=== PATIENT | female | born 1985 | race Caucasian/White ===

== ENCOUNTER 2019-12-22 17:48 | Emergency (ER) | payer OTHER, SELFPAY ==
[2019-12-22 17:56] VITALS: BP 114/66; PULSE 79; RESP 16; TEMP 36.9; O2SAT 100
--- NOTE | 2019-12-22 18:27 | PC.NURSE ---
moved to rm 1.
--- NOTE | 2019-12-22 18:41 | PC.NURSE ---
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
--- NOTE | 2019-12-22 18:45 | ED.SKABFB ---
HPI - Skin/Abscess/Foreign Bdy General Chief complaint: Skin/Abscess/Foreign Body Stated complaint: Pain under arm Time Seen by Provider: 12/22/19 18:16 Source: patient and RN notes reviewed Mode of arrival: ambulatory Limitations: no limitations History of Present Illness HPI narrative: Patient presents today complaining of an abscess to the right posterior lower leg x2 days. History of MRSA sepsis with multisystem organ failure few years ago where she was hospitalized for several months. She recently had a few abscesses in her axilla that have healed on their own. She has recently been taking ibuprofen and currently rates her pain 2/10. States she had a low-grade fever a few days ago. MD complaint: abscess/boil Related Data Allergies Allergy/AdvReac Type Severity Reaction Status Date / Time No Known Allergies Allergy Unverified 09/24/17 18:35 Review of Systems Review of Systems: Narrative: CONSTITUTIONAL: Denies body aches, fever, chills, or sweats. EYES: Denies visual changes, redness, or discharge. ENT: Denies rhinorrhea, congestion, sore throat, or otalgia. CARDIOVASCULAR: Denies chest pain, palpitations, or edema. RESPIRATORY: Denies cough or dyspnea. GASTROINTESTINAL: Denies abdominal pain, nausea, vomiting, or diarrhea. GENITOURINARY: Denies dysuria or hematuria. SKIN: + Abscess to right lower leg MUSCULOSKELETAL: Denies back pain, joint pain, or myalgia. NEUROLOGIC: Denies headache, numbness, tingling, or weakness. PSYCH: Denies depression or anxiety. [facility] Past Medical History Medical History (Updated 12/23/19 @ 11:01 by Mary Anne Levin, [facility]) MRSA (methicillin resistant Staphylococcus aureus) septicemia Comments At time of signature, I have reviewed and agree with nursing past medical, surgical, social and family history unless otherwise noted. Please see nursing chart for further information. There is no relevant family history pertinent to the presenting complaint Exam Narrative: Exam Narrative: GENERAL: Well-appearing, well-nourished, and in no acute distress. HEAD: Normocephalic, atraumatic. EYES: EOMI. No redness or drainage. Conjunctivae normal. ENT: Mucous membranes pink and moist. NECK: Normal AROM. CHEST: No respiratory distress. EXTREMITIES: Normal range of motion. Right lower leg: Posterior leg is erythematous, mildly edematous, and indurated measuring 18 x 20 cm with a fluctuant area measuring 6 x 5 cm that is firm and necrotic. Patient has no sensation in the black necrotic area. SKIN: Warm, dry, no rash. Capillary refill normal. NEURO: No focal deficits. Alert and oriented x3. Gait steady. PSYCH: Normal affect. No signs of depression or anxiety. Course Vital Signs Vital signs: Vital Signs Temperature 98.5 F 12/22/19 17:56 Pulse Rate 79 12/22/19 17:56 Respiratory Rate 16 12/22/19 17:56 Blood Pressure 114/66 12/22/19 17:56 Pulse Oximetry 100 12/22/19 17:56 Temperature 98.5 F 12/22/19 17:56 Pulse Rate 79 12/22/19 17:56 Respiratory Rate 16 12/22/19 17:56 Blood Pressure 114/66 12/22/19 17:56 Pulse Oximetry 100 12/22/19 17:56 Reviewed Procedures Abscess I/D lower extremity: Date of Incision: 12/22/19 Time of Incision: 18:35 Side (if applicable): right Local Anesthetic: none (none. Incised in necrotic area with no sensation.) Technique: incised with #11 blade Irrigation: Yes Packing used?: none I&D Results: Pus and Blood Abcess I&D Additional Comments: Dressed with nonadherent dressing. Patient tolerated procedure well. MDM - Skin/Abscess/Foreign Bdy Differential Diagnosis Differential diagnosis: Likely abscess of skin or subcutaneous tissue and cellulitis Critical Care Time Critical Care Time Critical Care Time: No Discharge Plan Discharge Clinical Impression: Abscess of skin or subcutaneous tissue Patient Disposition: Home, Self-Care Condition: Stable
== END 2019-12-22 18:56 | disposition home or self-care (01) ==
PROVIDERS: Emergency Provider Nurse Practitioner
DX: L02.415 Cutaneous abscess of right lower limb (principal); Z86.14 Personal history of Methicillin resistant Staphylococcus aureus infection
CPT/HCPCS: 10060; 99213; G0463

== ENCOUNTER 2020-05-14 18:59 | Emergency (ER) | payer OTHER, SELFPAY ==
[2020-05-14 19:08] VITALS: BP 124/67; PULSE 71; RESP 16; TEMP 36.1; O2SAT 99
--- NOTE | 2020-05-14 19:21 | ED.SKABFB ---
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 She states she noticed it yesterday and has been pulling some what she describes as black tissue out of the area although the area looks more cellulitic. She has multiple track damon on her legs arms hands chest. Related Data Home Medications Medication Instructions Recorded Confirmed No Home Medications 05/14/20 05/14/20 Allergies Allergy/AdvReac Type Severity Reaction Status Date / Time No Known Allergies Allergy Verified 05/14/20 19:18 Review of Systems Review of Systems: Narrative: CONSTITUTIONAL: Denies fever, chills, sweats. EYES: Denies visual changes, redness, discharge. ENT: Denies rhinorrhea, congestion, sore throat, otalgia. CARDIOVASCULAR: Denies chest pain, palpitations, edema. RESPIRATORY: Denies dyspnea, wheezing, cough GASTROINTESTINAL: Denies abdominal pain, nausea, vomiting, diarrhea. GENITOURINARY: Denies dysuria, hematuria, abnormal discharge SKIN: Denies rash or itching. Small area of celluliytis in the medial side of her right medial lower extremity; is multiple areas of evidence of prior drug use in arms legs and chest that are visible NEUROLOGIC: Denies numbness, or focal weakness. PSYCHIATRIC: Denies anxiety or depression. [facility] Past Medical History Medical History MRSA (methicillin resistant Staphylococcus aureus) septicemia Substance abuse Family History Family History Other No acute medical problems Social History Social History (Updated 05/14/20 @ 19:26 by Madelyn Sesay CNP) Smoking packs per day: 0.5 Smoking cigarettes per day: 10.0 Smoking status: Current every day smoker Tobacco type: cigarettes Alcohol intake: former Substance use: current Living arrangements: with friend(s) Exam Narrative: Exam Narrative: GENERAL: This is a well-nourished, well-developed patient, in mild distress. Patient appears to be an altered state possibly from ingestion of drugs HEAD: normocephalic, atraumatic. EYES: Sclera clear/white. Vision is grossly intact. EARS: External ears normal,Hearing grossly intact. NOSE: External nose normal without nasal discharge, nares without redness, no rhinorrhea. THROAT: Mucous membranes moist, NECK: Neck supple, CARDIOVASCULAR: Regular rate and rhythm without murmurs, gallops, or rubs. RESPIRATORY: Clear to auscultation. Breath sounds equal bilaterally. No wheezes, rales, or rhonchi. GASTROINTESTINAL: Abdomen soft, non-tender, SKIN: warm, multiple areas of track damon on legs both anterior and posterior the cellulitic area she is here for is 1 x 2 nonindurated, no fluctuance, mildly red- her right leg is 1+ edema left leg is not endemic she is pedal pulses in both feet NEURO: awake, alert, and oriented to person, place and time. There were no obvious focal neurologic abnormalities. Steady gait EXTREMITIES: Normal range of motion. BACK: Nontender without deformity Course Course Emergency Course: Patient with known drug use comes to express care for treatment of area medial side lower right leg that she believes may be an insect bite; also has been using intravenous drugs in lower legs-damon on her legs are both new and old Discussed treatment with patient and started on Keflex and back from she is going to use Polysporin ointment and keep the area covered while it heals she was instructed to use soap and water to clean the
[2020-05-14] MEDS: TETANUS,DIPHTHERIA,AC PERTUSSIS ADULT (0.5 ML) BOOSTRIX IM (19:43)
== END 2020-05-14 19:45 | disposition home or self-care (01) ==
PROVIDERS: Emergency Provider Nurse Practitioner
DX: L03.115 Cellulitis of right lower limb (principal); Z23 Encounter for immunization; F17.210 Nicotine dependence, cigarettes, uncomplicated; Z86.14 Personal history of Methicillin resistant Staphylococcus aureus infection; Z95.0 Presence of cardiac pacemaker; Z95.2 Presence of prosthetic heart valve
CPT/HCPCS: 90471; 90715; 99213; G0463

== ENCOUNTER 2021-01-01 18:40 | Emergency (ER) | payer OTHER, SELFPAY ==
--- NOTE | ~2021-01-01 | XR_ITS ---
XR foot RT min 3V DATE: 01/01/2021 19:04 INDICATION: Trauma, pain TECHNIQUE: 4 views COMPARISON: None FINDINGS: No fracture or dislocation, periosteal reaction or bone destruction. There is mild osteoarthritis at the first metatarsophalangeal joint. IMPRESSION: No fracture or dislocation Reviewed, dictated and finalized at location A. IMPRESSION: No fracture or dislocation
[2021-01-01 18:52] VITALS: BP 134/69; PULSE 73; RESP 20; TEMP 37.1; O2SAT 99
--- NOTE | 2021-01-01 19:41 | ED.LOWEXIN ---
HPI - Extremity Injury (Lower) General Chief Complaint: Extremity Injury, Lower Stated Complaint: Right toe Pain History of Present Illness HPI Narrative: This is a 35-year-old female that comes to the urgent care complaining of hitting her foot on a stone and states that she believes her foot is broken is painful to palpitation it hurts when she walks Related Data Home Medications Medication Instructions Recorded Confirmed aspirin [Aspirin Child] 01/01/21 Allergies Allergy/AdvReac Type Severity Reaction Status Date / Time No Known Allergies Allergy Verified 01/01/21 19:26 Review of Systems Review of Systems: Right foot pain All systems reviewed & are unremarkable except as noted in HPI and below PMFSH Past Medical History Medical History MRSA (methicillin resistant Staphylococcus aureus) septicemia Substance abuse Family History Family History Other No acute medical problems Social History Social History (Updated 05/14/20 @ 19:26 by Madelyn Sesay CNP) Smoking packs per day: 0.5 Smoking cigarettes per day: 10.0 Smoking status: Current every day smoker Tobacco type: cigarettes Alcohol intake: former Substance use: current Comments At time as signature, I have reviewed and agree with nursing past medical, social, surgical and family history. Please see nursing chart for further information. There is no relevant family history pertinent to the presenting complaint. Exam Narrative: GENERAL:Well-appearing, well-nourished, and in no acute distress. HEAD:Normocephalic, atraumatic. EYES: PERRLA ENT: Nares clear, no rhinorrhea or epistaxis. NECK: Supple. CHEST: Clear to auscultation. No respiratory distress. HEART: Regular rate and rhythm. ABDOMEN: Soft, nontender, nondistended, normal active bowel sounds. EXTREMITIES: Normal range of motion. SKIN: Warm, dry, no rash. NEURO: No focal deficits. Alert and oriented x3. Course Course Emergency Course: X-ray negative for fracture Vital Signs Vital signs: Vital Signs Temperature 98.7 F 01/01/21 18:52 Pulse Rate 73 01/01/21 18:52 Respiratory Rate 20 01/01/21 18:52 Blood Pressure 134/69 01/01/21 18:52 Pulse Oximetry 99 01/01/21 18:52 Temperature 98.7 F 01/01/21 18:52 Pulse Rate 73 01/01/21 18:52 Respiratory Rate 20 01/01/21 18:52 Blood Pressure 134/69 01/01/21 18:52 Pulse Oximetry 99 01/01/21 18:52 Discharge Plan Discharge Clinical Impression: Foot sprain Qualifiers: Encounter type: initial encounter Laterality: right Qualified Code(s): S93.601A - Unspecified sprain of right foot, initial encounter Patient Disposition: Home, Self-Care Condition: Stable Instructions: Antibiotic Form, Foot Sprain (ED) Additional Instructions: Avoid weight bearing until the pain subsides. Ice to the area 20-30 minutes 4-6 times a day Elevate above heart Elastic wrap or orthopedic splint as directed for comfort for the next 5-7 days Crutches as directed if needed Tylenol for lesser pain Ibuprofen regularly for the next 2-3 days for the inflammation Follow up with your primary care provider if the condition is not improving within 1 week or sooner if the condition worsens with numbness, tingling, decrease sensation with weakness to seek ER. Prescriptions: New ibuprofen 800 mg tablet 800 mg PO Q6H PRN (Reason: pain) Qty: 30 RF: 0 No Action aspirin [Aspirin Child] 81 mg Tablet,Chewable RF: 0 Follow-up/Referrals: PHYSICIAN,KEY FILER [Primary Care Provider] - Stand Alone Forms: Work/School Release IP Time of Disposition: 19:42
== END 2021-01-01 19:52 | disposition home or self-care (01) ==
PROVIDERS: Emergency Provider Nurse Practitioner Family
DX: S93.601A Unspecified sprain of right foot, initial encounter (principal); W22.8XXA Striking against or struck by other objects, initial encounter; F17.210 Nicotine dependence, cigarettes, uncomplicated; Z86.14 Personal history of Methicillin resistant Staphylococcus aureus infection
CPT/HCPCS: 73630; 99213; G0463

== ENCOUNTER 2021-07-10 18:15 | Emergency (ER) | payer OTHER, SELFPAY ==
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
[2021-07-10 18:26] VITALS: BP 117/73; PULSE 67; RESP 16; TEMP 36.1; O2SAT 99
[2021-07-10 18:27] VITALS: BP 117/73; PULSE 67; RESP 16; TEMP 36.1; O2SAT 99
== END 2021-07-10 18:48 | disposition home or self-care (01) ==
PROVIDERS: Emergency Provider Nurse Practitioner Family
DX: S01.81XA Laceration without foreign body of other part of head, initial encounter (principal); Y04.2XXA Assault by strike against or bumped into by another person, initial encounter; Z86.14 Personal history of Methicillin resistant Staphylococcus aureus infection; F17.210 Nicotine dependence, cigarettes, uncomplicated
CPT/HCPCS: 12011; 99212; G0463

== ENCOUNTER 2021-07-26 18:04 | Emergency (ER) | payer OTHER, SELFPAY ==
--- NOTE | ~2021-07-26 | XR_ITS ---
EXAMINATION: XR chest 2V 07/26/2021 19:05 INDICATION: Cough and congestion for 2 weeks PROCEDURE: 2 view chest COMPARISON: No prior studies for comparison. FINDINGS: The lungs are clear. Status post median sternotomy. There are cardiac leads overlying the heart. The cardiomediastinal silhouette is within normal limits . There are no pleural effusions. There is no pneumothorax suspected. IMPRESSION: 1: NO ACUTE CARDIOPULMONARY DISEASE. Reviewed, dictated and finalized at location A.
[2021-07-26 18:13] VITALS: BP 102/70; PULSE 70; RESP 16; TEMP 36.6; O2SAT 100
--- NOTE | 2021-07-26 18:47 | ED.URI ---
HPI - URI/Sore Throat General Chief Complaint: Upper Respiratory Infection Stated Complaint: cough Time Seen by Provider: 07/26/21 18:50 Source: patient and RN notes reviewed Mode of arrival: ambulatory Limitations: no limitations History of Present Illness HPI Narrative: 36-year-old female presented for complaint of cough, shortness of breath and blood-tinged sputum for 3 days, she endorses 2-week history of sinus pressure and congestion. Denies n/v/d/f/c. She has history of MRSA sepsis with multisystem organ failure a few years ago where she was hospitalized for several months, pacemaker, heart valve replacement, lung surgeries, trache. Hx IVDA, clean since 05/05/21. MD elicited complaint: cough Related Data Allergies Allergy/AdvReac Type Severity Reaction Status Date / Time No Known Allergies Allergy Verified 07/26/21 18:17 Review of Systems Review of Systems: CONSTITUTIONAL: Denies malaise, chills, sweats, fever EYES: Denies visual changes, redness, or discharge ENT: Reports rhinorrhea, congestion, sinus pain CARDIOVASCULAR: Denies chest pain, palpitations, edema RESPIRATORY: Reports cough, dyspnea GASTROINTESTINAL: Denies abdominal pain, nausea, vomiting, diarrhea SKIN: Denies rash or itching MUSCULOSKELETAL: Denies myalgia NEUROLOGIC: Denies headache PMFSH Past Medical History Medical History MRSA (methicillin resistant Staphylococcus aureus) septicemia Substance abuse Family History Family History Other No acute medical problems Social History Social History Smoking packs per day: 0.5 Smoking cigarettes per day: 10.0 Smoking status: Current every day smoker Tobacco type: cigarettes Alcohol intake: former Substance use: current Exam Narrative: GENERAL: Ill-appearing, nontoxic appears older than stated age HEAD: Normocephalic EYES: conjunctivae clear ENT: Mucous membranes moist. TM pearly bowden with dull light reflex bilaterally; no tragal tenderness. Oropharynx erythematous without lesions or exudate, no drooling, no hoarseness, no trismus, uvula midline. States NECK: Supple. No lymphadenopathy CHEST: Clear to auscultation, breath sounds equal. No wheezing, rhonchi, rales, or stridor. No respiratory distress, speaks in full sentences. HEART: Regular rate and rhythm. No murmur heard. SKIN: Warm, dry, no rash. NEURO: Alert and oriented x3. PSYCH: Normal mood and affect Course Course Emergency Course: Patient is aware of diagnosis, understands and agrees to treatment plan. Anticipatory guidance given. Patient agrees to follow-up as directed and is aware of reasons to seek care at the emergency department. Portions of this record may have been created with voice recognition software Level of Care: Express Care Visit Vital Signs Vital signs: Vital Signs Temperature 97.9 F 07/26/21 18:13 Pulse Rate 70 07/26/21 18:13 Respiratory Rate 16 07/26/21 18:13 Blood Pressure 102/70 07/26/21 18:13 Pulse Oximetry 100 07/26/21 18:13 Oxygen Delivery Room Air 07/26/21 18:13 Temperature 97.9 F 07/26/21 18:13 Pulse Rate 70 07/26/21 18:13 Respiratory Rate 16 07/26/21 18:13 Blood Pressure 102/70 07/26/21 18:13 Pulse Oximetry 100 07/26/21 18:13 Oxygen Delivery Room Air 07/26/21 18:13 reviewed MDM - URI/Sore Throat MDM Narrative Medical decision making narrative: Chest x-ray reviewed with patient, negative. She is advised on supportive treatments. Antibiotic given for 2-week history of sinus pressure and congestion. She is instructed on how to use an inhaler. She is aware of signs and symptoms to go to the ER. Differential Diagnosis Differential diagnosis: Likely upper respiratory infection, sinusitis and viral infection Imaging Data Radiologist's impression: Ordering Physician: Jocelyn
== END 2021-07-26 19:40 | disposition home or self-care (01) ==
PROVIDERS: Emergency Provider Nurse Practitioner Family
DX: J06.9 Acute upper respiratory infection, unspecified (principal); F17.210 Nicotine dependence, cigarettes, uncomplicated; Z86.14 Personal history of Methicillin resistant Staphylococcus aureus infection; Z95.0 Presence of cardiac pacemaker; Z95.2 Presence of prosthetic heart valve
CPT/HCPCS: 71046; 99213; G0463

== ENCOUNTER 2021-11-08 01:24 | Emergency (ER) | payer OTHER, SELFPAY ==
[2021-11-08 01:28] VITALS: BP 102/83; PULSE 69; RESP 14; TEMP 36.6; O2SAT 100
--- NOTE | 2021-11-08 01:42 | ED.GENADULT ---
HPI - General Adult General Chief complaint: Psychiatric Symptoms Stated complaint: Cannot Sleep Time Seen by Provider: 11/08/21 01:30 History of Present Illness HPI narrative: This is a 36-year-old female with past medical history of endocarditis who presents to the emergency department asking to be checked out. She states she was seen at an outside emergency department 2 days ago, concerned that they took a baby out of me. She also states she is tired and has had difficulty sleeping. She denies hallucinations, suicidal ideation or homicidal ideation. She denies drug or alcohol use. Related Data Allergies Allergy/AdvReac Type Severity Reaction Status Date / Time No Known Allergies Allergy Verified 07/26/21 18:17 Review of Systems Review of Systems: CONSTITUTIONAL: Denies fever, chills, or sweats. EYES: Denies visual changes, redness, or discharge. CARDIOVASCULAR: Denies chest pain, palpitations, or edema. RESPIRATORY: Denies cough or dyspnea. GASTROINTESTINAL: Denies abdominal pain, nausea, vomiting, or diarrhea. GENITOURINARY: Denies dysuria or hematuria. SKIN: Denies rash or itching. NEUROLOGIC: Denies headache, numbness, dizziness, or weakness. PSYCHIATRIC: Denies anxiety or depression. PMFSH Past Medical History Medical History MRSA (methicillin resistant Staphylococcus aureus) septicemia Substance abuse Family History Family History Other No acute medical problems Social History Social History Smoking packs per day: 0.5 Smoking cigarettes per day: 10.0 Smoking status: Current every day smoker Tobacco type: cigarettes Alcohol intake: former Substance use: current Substance use type: unknown Exam Narrative: GENERAL: Well-developed, well-nourished, appears intoxicated HEAD: Normocephalic, atraumatic. EYES: PERRLA and EOMI. pupils 2 mm and equal bilaterally ENT: Nares clear, no rhinorrhea or epistaxis. Mucous membranes moist. Oropharynx without tonsillar hypertrophy exudate or other lesions. NECK: Supple. No adenopathy or masses. No carotid bruits or JVD CHEST: Well-healed midline surgical scar, clear to auscultation. No respiratory distress. No wheezes rales or rhonchi HEART: Regular rate and rhythm. No murmur heard. Normal peripheral pulses. ABDOMEN: Soft, nontender, nondistended, normal active bowel sounds. (chaperoned by female RN Bianca): Normal external female genitalia, Small amount of mucus in the vaginal vault, normal appearing cervix. No visible injury or abnormality of the vaginal pierre or vault. No cervical motion tenderness on bimanual exam, normal uterus on palpation EXTREMITIES: Normal range of motion. No edema. SKIN: Warm, dry, no rash. NEURO: No focal deficits. Alert and oriented x3. PSYCH: Normal mood and affect. Course Course Emergency Course: 02:17 - Pelvic exam not concerning for traumatic injury, bleeding or PID. The patient requests STI testing but declines prophylactic treatment or testing. She complains of dysuria. Though fatigued and possibly intoxicated, she is oriented, demonstrates a linear thought process and does not exhibit behavior that could be threatening to herself or others. Will discharge with antibiotics for UTI. Discussed return and emergency precautions. The patient voiced understanding and is comfortable with the plan. Vital Signs Vital signs: Vital Signs Temperature 97.9 F 11/08/21 01:28 Pulse Rate 69 11/08/21 01:28 Respiratory Rate 14 11/08/21 01:28 Blood Pressure 102/83 11/08/21 01:28 Pulse Oximetry 100 11/08/21 01:28 Oxygen Delivery Room Air 11/08/21 01:28 Temperature 97.9 F 11/08/21 01:28 Pulse Rate 69 11/08/21 01:28 Respiratory Rate 14 11/08/21 01:28 Blood Pressure 102/83 11/08/21 01:28 Pulse Oximetry 100
--- NOTE | 2021-11-08 02:37 | PC.NURSE ---
this rn in room with erp per pt request. pt requesting erp look at right breast. this rn next to computer in room. pt lunged towards this rn picked up blue chair in room moving it towards this rn. pt picked up her personal pag and tossed it on same blue chair. pt took hospital blanket off bed and threw it on same blue chair. pt staggered to bed and this rn asked if pt was ok. pt states im fine and sat down in bed.
--- NOTE | 2021-11-08 02:40 | PC.NURSE ---
pt in hallway after discharge instructions reviewed asking for discharge paperwork. this rn informed pt of packet that was given to pt and informed pt of papers seen in her bag in hallway on the floor. Pt became verbally aggressive towards this rn states if you would have just fucking handed them to me you paresh mcfarland. this rn informed pt she was discharged and would need to wait for her ride in the waiting room per rn charge. pt states verbally aggressive words and walks closer to this rn. this rn walked away from pt to avoid negative physical contact from pt. rn charge aware.
== END 2021-11-08 02:48 | disposition home or self-care (01) ==
PROVIDERS: Emergency Provider Preventive Medicine Aerospace Medicine
DX: F19.129 Other psychoactive substance abuse with intoxication, unspecified (principal); N39.0 Urinary tract infection, site not specified; I38 Endocarditis, valve unspecified; Z86.14 Personal history of Methicillin resistant Staphylococcus aureus infection; F17.210 Nicotine dependence, cigarettes, uncomplicated
CPT/HCPCS: 87491; 87591; 87808; 99284

== ENCOUNTER 2021-12-12 19:49 | Emergency (ER) | payer OTHER, SELFPAY ==
[2021-12-12 20:02] VITALS: BP 128/86; PULSE 74; RESP 16; TEMP 36.5; O2SAT 99
--- NOTE | 2021-12-12 20:13 | ED.SKABFB ---
HPI - Skin/Abscess/Foreign Bdy General Chief complaint: Skin/Abscess/Foreign Body Stated complaint: Right Ear Irritation, Chest Pain Time Seen by Provider: 12/12/21 20:15 Source: patient Mode of arrival: ambulatory Limitations: no limitations History of Present Illness HPI narrative: 36-year-old female presented for multiple complaints. Her main complaint is the open wound to the right anterior ankle for at least 1 week. She states it was larger and had yellow drainage or worms coming out of it after her shower. Numbness, tingling, or weakness of the foot. Patient also reports occasional heart flutter on the right and left side of her chest, denies associated dizziness, shortness of breath, syncope. Patient has a history of a pacemaker. Also reports my right ear hole is much bigger than the left. And reports 3 black dots on the left side of her nose. Significant history of substance abuse, denies current use. States last used 2 months ago. Related Data Allergies Allergy/AdvReac Type Severity Reaction Status Date / Time No Known Allergies Allergy Verified 12/12/21 20:05 Review of Systems Review of Systems: CONSTITUTIONAL: Denies body aches, fever, chills, or sweats. EYES: Denies visual changes, redness, or discharge. CARDIOVASCULAR: Denies chest pain, or edema. RESPIRATORY: Denies cough or dyspnea. GASTROINTESTINAL: Denies abdominal pain, nausea, vomiting, or diarrhea. SKIN: reports right leg wound MUSCULOSKELETAL: Denies back pain, joint pain, or myalgia. NEUROLOGIC: Denies numbness, tingling, or weakness. [facility] Past Medical History Medical History MRSA (methicillin resistant Staphylococcus aureus) septicemia Substance abuse Family History Family History Other No acute medical problems Social History Social History Smoking packs per day: 0.5 Smoking cigarettes per day: 10.0 Smoking status: Current every day smoker Tobacco type: cigarettes Alcohol intake: former Substance use: current Substance use type: unknown Comments At time of signature, I have reviewed and agree with nursing past medical, surgical, social and family history unless otherwise noted. Please see nursing chart for further information. There is no relevant family history pertinent to the presenting complaint Exam Narrative: GENERAL: Well-appearing HEAD: Normocephalic, atraumatic. EYES: conjunctivae clear, and EOMI. ENT: Mucous membranes moist. Oropharynx without edema, erythema or lesions. Bilateral ears appear symmetrical, TMs with normal light reflex bilaterally. NECK: Supple. No lymphadenopathy CHEST: Clear to auscultation. HEART: Regular rate and rhythm. SKIN: Warm, dry. Right anterior ankle with approx 2cm diameter erythematous open wound; wound bed approx 0.5cm yellow with approx 2mm dark/blackened area, no active drainage or fluctuance. Wearing long sleeves, no apparent ivda. NEURO: Alert and oriented x3. Course Course Emergency Course: Patient is aware of diagnosis, understands and agrees to treatment plan. Anticipatory guidance given. Patient agrees to follow-up as directed and is aware of reasons to seek care at the emergency department. Portions of this record may have been created with voice recognition software Level of Care: Express Care Visit Vital Signs Vital signs: Vital Signs Temperature 97.7 F 12/12/21 20: Pulse Rate 74 12/12/21 20:02 Respiratory Rate 16 12/12/21 20:02 Blood Pressure 128/86 12/12/21 20:02 Pulse Oximetry 99 12/12/21 20:02 Oxygen Delivery Room Air 12/12/21 20:02 Temperature 97.7 F 12/12/21 20:02 Pulse Rate 74 12/12/21 20:02 Respiratory Rate 16 12/12/21 20:02 Blood Pressure 128/86 12/12/21 20:02 Pulse Oximetry 99 12/12/21 20:02 Oxygen Delivery Room Air 12/01
== END 2021-12-12 20:37 | disposition home or self-care (01) ==
PROVIDERS: Emergency Provider Nurse Practitioner Family
DX: L02.415 Cutaneous abscess of right lower limb (principal); F17.210 Nicotine dependence, cigarettes, uncomplicated; Z86.14 Personal history of Methicillin resistant Staphylococcus aureus infection
CPT/HCPCS: 99213; G0463